=== PATIENT | female | born 1965 | race Two or more races ===

== ENCOUNTER 2023-04-23 06:49 | Emergency (ER) | payer OTHER ==
[~2023-04-23] VITALS: Ht 167.6 cm; Wt 70.8 kg
[2023-04-23] MEDS ORDERED: TIRZEPATIDE (07:26)
[2023-04-23] MEDS ORDERED: MOUNJARO15 MG/0.5 SQ (07:26)
[2023-04-23] MEDS ORDERED: KETOROLAC TROMETHAMINE 60 MG VIAL IM STA (08:35)
[2023-04-23] MEDS ORDERED: DEXAMETHASONE SODIUM PHOSPHATE 4 MG/ML VIAL IM STA (08:36)
[2023-04-23] MEDS ORDERED: ORPHENADRINE CITRATE 30 MG/ML AMPUL IM STA (08:37)
[2023-04-23] MEDS ORDERED: NORFLEX100MG PO (09:59)
[2023-04-23] MEDS ORDERED: KETO10TA2 PO (09:59)
== END 2023-04-23 10:50 ==
LOC: ER 06:49
DX: S83.8X1A Sprain of other specified parts of right knee, initial encounter (principal); S80.01XA Contusion of right knee, initial encounter; W18.39XA Other fall on same level, initial encounter; Y93.89 Activity, other specified; Y92.413 State road as the place of occurrence of the external cause; Z88.0 Allergy status to penicillin; M19.90 Unspecified osteoarthritis, unspecified site